=== PATIENT | female | born 1945 | race Hispanic/Latino ===

== ENCOUNTER → 2020-01-16 | Outpatient (CLI) | payer OTHER | END | disposition home or self-care (01) | LOC: OIH 09:48 | PROVIDERS: ATTEND Family Medicine | DX: J20.9 Acute bronchitis, unspecified (principal); M41.85 Other forms of scoliosis, thoracolumbar region | CPT/HCPCS: 71046 ==

== ENCOUNTER 2023-03-23 15:47 | Observation (INO) | payer MEDICARE, OTHER ==
[~2023-03-23] VITALS: Ht 157.5 cm; Wt 60.8 kg
[2023-03-23 16:26] LABS: BASOPHILS % (AUTO) 0.2 % (0.0-5.0); EOSINOPHILS % (AUTO) 0.1 % (0.0-8.0); HEMATOCRIT 34.9 % (36-48); LYMPHOCYTES % (AUTO) 1.9 % (21.0-51.0); MEAN CORPUSCULAR HEMOGLOBIN 30.1 pg (27.0-33.0); MEAN CORPUSCULAR HGB CONC 32.4 g/dL (32.0-36.0); MEAN CORPUSCULAR VOLUME 93.1 fL (79-99); MONOCYTES % (AUTO) 8.3 % (3.0-13.0); NEUTROPHILS % (AUTO) 89.2 % (40.0-77.0); PLATELET COUNT (AUTO) 417 K/uL (130-400); RED BLOOD CELL COUNT(AUTO) 3.75 MIL/uL (4.00-5.50); RED CELL DISTRIBUTION WIDTH 13.3 % (11.0-15.5); WHITE BLOOD COUNT (AUTO) 11.5 K/uL (4.8-10.8)
[2023-03-23] MEDS ORDERED: 0.9%NACL 1000ML 1,000 ML IV ONE (17:00)
[2023-03-23] MEDS ORDERED: ONDANSETRON 4MG INJ IVP ONE ×2 (17:00→21:30)
[2023-03-23 17:01] LABS: ALBUMIN 4.2 g/dL (3.5-5.0); CREATININE 1.2 mg/dL (0.5-1.5); MAGNESIUM 2.1 mg/dL (1.80-2.40); POTASSIUM 4.3 mmol/L (3.5-5.1); TOTAL PROTEIN, SERUM 7.9 g/dL (6.0-8.3)
[2023-03-23] MEDS ORDERED: IOHEXOL 350 MG/ML 100ML INFUS..BTL IV ONE (17:41)
[2023-03-23 18:53] LABS: BILIRUBIN,URINE NEGATIVE (NEGATIVE); COLOR,URINE YELLOW (YELLOW); GLUCOSE, URINE (UA) NEGATIVE (NEGATIVE); KETONES,URINE NEGATIVE (NEGATIVE); LEUKOCYTE ESTERASE ,URINE NEGATIVE Leu/uL (NEGATIVE); NITRATE,URINE NEGATIVE (NEGATIVE); OCCULT BLOOD,URINE TRACE-INTACT (NEGATIVE); PROTEIN,URINE 100 mg/dL (NEGATIVE); UROBILINOGEN,URINE 0.2 mg/dL (0.2-1.0)
[2023-03-23] MEDS ORDERED: CEFTRIAXONE 1G VIAL IVPB ONE (19:00)
[2023-03-23 19:12] LABS: APPEARANCE,URINE CLEAR (CLEAR)
[2023-03-23 19:14] LABS: BACTERIA,URINE None Seen /HPF (None Seen); RBC,URINE 0-1 /HPF (0-1); SQUAMOUS EPITHELIAL CELL,UR 0-2 /HPF (0-2); WBC,URINE 0-1 /HPF (0-1)
[2023-03-24] MEDS ORDERED: 1/2 NS 1000ML 1,000 ML IV SCH (06:00)
[2023-03-24] MEDS ORDERED: ONDANSETRON 4MG INJ IVP PRN (06:00)
[2023-03-24 06:15] VITALS: BP 156/67
[2023-03-24] MEDS ORDERED: METO-391 PO (06:51)
[2023-03-24] MEDS ORDERED: VINEGAR PO (06:51)
[2023-03-24] MEDS ORDERED: ZOLP5TAB8 PO (06:51)
[2023-03-24] MEDS ORDERED: MV-M1TAB20 PO (06:51)
[2023-03-24] MEDS ORDERED: BENA10TA77 PO (06:51)
[2023-03-24] MEDS ORDERED: OMEG-148 PO (06:51)
[2023-03-24] MEDS ORDERED: EZET10TA48 PO (06:51)
[2023-03-24] MEDS ORDERED: MULT-1203 PO (06:51)
[2023-03-24] MEDS ORDERED: LEVO5TAB13 PO (06:51)
[2023-03-24] MEDS ORDERED: VITA1CAP85 PO (06:51)
[2023-03-24] MEDS ORDERED: VENL-63 PO (06:51)
[2023-03-24 09:25] LABS: BASOPHILS % (AUTO) 0.1 % (0.0-5.0); HEMATOCRIT 31.1 % (36-48); LYMPHOCYTES % (AUTO) 7.5 % (21.0-51.0); MEAN CORPUSCULAR HEMOGLOBIN 30.2 pg (27.0-33.0); MEAN CORPUSCULAR HGB CONC 31.8 g/dL (32.0-36.0); MEAN CORPUSCULAR VOLUME 94.8 fL (79-99); MONOCYTES % (AUTO) 12.9 % (3.0-13.0); NEUTROPHILS % (AUTO) 79.2 % (40.0-77.0); PLATELET COUNT (AUTO) 323 K/uL (130-400); RED BLOOD CELL COUNT(AUTO) 3.28 MIL/uL (4.00-5.50); RED CELL DISTRIBUTION WIDTH 13.8 % (11.0-15.5); WHITE BLOOD COUNT (AUTO) 7.7 K/uL (4.8-10.8)
[2023-03-24] MEDS: PANTOPRAZOLE 40 MG/VIAL IVP SCH (09:42)
[2023-03-24 09:46] LABS: ALBUMIN 3.5 g/dL (3.5-5.0); POTASSIUM 3.8 mmol/L (3.5-5.1); TOTAL PROTEIN, SERUM 6.7 g/dL (6.0-8.3)
[2023-03-24 11:57] VITALS: BP 141/66
[2023-03-24] MEDS ORDERED: CEFTRIAXONE 1G VIAL IVPB SCH (12:30)
[2023-03-24] MEDS: ACETAMINOPHEN 325 MG TAB PO PRN ×2 (13:24→20:22)
[2023-03-24 16:00] VITALS: BP 144/71
[2023-03-24 19:00] VITALS: BP 167/78
[2023-03-24] MEDS: 1/2 NS 1000ML 1,000 ML IV SCH (20:48)
[2023-03-24] MEDS ORDERED: ZOLPIDEM TARTRATE 5 MG TAB PO SCH (21:00)
[2023-03-25] VITALS: BP 163/70
[2023-03-25 04:00] VITALS: BP 131/64
[2023-03-25] MEDS: 1/2 NS 1000ML 1,000 ML IV SCH ×2 (04:40→12:30)
[2023-03-25 08:00] VITALS: BP 157/79
[2023-03-25] MEDS ORDERED: MULTIVITAMIN TABLET PO SCH (09:00)
[2023-03-25] MEDS ORDERED: BENAZEPRIL HCL 10 MG TABLET PO SCH (09:00)
[2023-03-25] MEDS ORDERED: EZETIMIBE 10 MG TAB PO SCH (09:00)
[2023-03-25] MEDS ORDERED: VINEGAR PO SCH (09:00)
[2023-03-25] MEDS ORDERED: FISH OIL 1000 MG/CAP PO SCH (09:00)
[2023-03-25] MEDS ORDERED: Vitamin D3 Complete Cap PO SCH (09:00)
[2023-03-25] MEDS ORDERED: NON-FORMULARY MEDICATION 1 EACH (Omega-3S/Dha/Epa/Fish Oil (Fish Oil 1,000 mg Softgel) 1 E PO SCH (09:00)
[2023-03-25] MEDS ORDERED: NON-FORMULARY MEDICATION 1 EACH (Multivitamin (Multi Vitamin Daily) 1 EACH) PO SCH (09:00)
[2023-03-25] MEDS ORDERED: VITAMIN B COMPLEX 1 CAPSULE PO SCH (09:00)
[2023-03-25] MEDS ORDERED: (Levocetirizine Dihydrochloride 5 MG) PO SCH (09:00)
[2023-03-25] MEDS ORDERED: METOPROLOL SUCCINATE 50 MG TAB.SR.24H PO SCH (09:00)
[2023-03-25] MEDS: PANTOPRAZOLE 40 MG/VIAL IVP SCH (09:07)
[2023-03-25 12:00] VITALS: BP 133/56
== END 2023-03-25 15:20 | disposition home or self-care (01) ==
LOC: EDH 15:47 → EDHIP 03-24 05:22 → 3BH 03-24 06:08
PROVIDERS: ADMIT Internal Medicine; ATTEND Internal Medicine
DX: E86.0 Dehydration (principal); Z20.822 Contact with and (suspected) exposure to COVID-19; D72.829 Elevated white blood cell count, unspecified; R11.2 Nausea with vomiting, unspecified; R19.7 Diarrhea, unspecified; I10 Essential (primary) hypertension; E11.9 Type 2 diabetes mellitus without complications; I25.10 Atherosclerotic heart disease of native coronary artery without angina pectoris; J11.1 Influenza due to unidentified influenza virus with other respiratory manifestations; R74.02 Elevation of levels of lactic acid dehydrogenase [LDH]; E78.5 Hyperlipidemia, unspecified; Z90.710 Acquired absence of both cervix and uterus; Z95.1 Presence of aortocoronary bypass graft; Z79.899 Other long term (current) drug therapy; Z98.890 Other specified postprocedural states; Z95.5 Presence of coronary angioplasty implant and graft
CPT/HCPCS: 96376 ×3; 96361 ×4; 96375 ×2; 99285; 83735; 84484; 80053 ×2; 85025 ×2; 87880; 87804 ×2; 83605 ×2; 81001; 36415 ×2; 87635; 71045; 74177; 96365; 82948 ×7; 83630; C9803; J0696 ×2; J2405 ×3; Q9967; G0378 ×34; C9113 ×2

== ENCOUNTER → 2023-05-24 | Outpatient (CLI) | payer MEDICARE ==
[~2023-05-24] MED LIST: BENA10TA77 PO; EZET10TA48 PO; LEVO5TAB13 PO; METO-391 PO; MULT-1203 PO; MV-M1TAB20 PO; OMEG-148 PO; VENL-63 PO; VINEGAR PO; VITA1CAP85 PO; ZOLP5TAB8 PO
== END | disposition home or self-care (01) ==
LOC: RAH 15:40
PROVIDERS: ATTEND Family Medicine
DX: M19.042 Primary osteoarthritis, left hand (principal); R60.0 Localized edema; W54.8XXA Other contact with dog, initial encounter; Y93.89 Activity, other specified; Y92.89 Other specified places as the place of occurrence of the external cause; Y99.8 Other external cause status
CPT/HCPCS: 73130

== ENCOUNTER 2023-05-29 01:54 | Inpatient (IN) | payer MEDICARE ==
[~2023-05-29] VITALS: Ht 157.5 cm; Wt 59.1 kg
[2023-05-29 02:19] LABS: BASOPHILS # (AUTO) 0.05 K/uL (0.00-0.20); BASOPHILS % (AUTO) 0.3 % (0.0-5.0); EOSINOPHILS # (AUTO) 0.05 K/uL (0.00-0.70); EOSINOPHILS % (AUTO) 0.3 % (0.0-8.0); HEMATOCRIT 27.2 % (36-48); IMMATURE GRANULOCYTE ABSOLUTE 0.08 K/uL (0-1); LYMPHOCYTES # (AUTO) 0.7 K/uL (1.0-4.8); LYMPHOCYTES % (AUTO) 4.5 % (21.0-51.0); MEAN CORPUSCULAR HGB CONC 32.4 g/dL (32.0-36.0); MEAN CORPUSCULAR VOLUME 83.4 fL (79-99); MONOCYTES # (AUTO) 1.6 K/uL (0.1-1.0); NEUTROPHILS # (AUTO) 13.6 K/uL (1.8-7.7); NEUTROPHILS % (AUTO) 84.4 % (40.0-77.0); PLATELET COUNT (AUTO) 542 K/uL (130-400); RED BLOOD CELL COUNT(AUTO) 3.26 MIL/uL (4.00-5.50); RED CELL DISTRIBUTION WIDTH 16.9 % (11.0-15.5); WHITE BLOOD COUNT (AUTO) 16.1 K/uL (4.8-10.8)
[2023-05-29 02:28] LABS: POTASSIUM 5.6 mmol/L (3.5-5.1)
[2023-05-29] MEDS ORDERED: MORPHINE 4 MG SYG IVP ONE (02:30)
[2023-05-29 02:37] LABS: ALBUMIN 2.9 g/dL (3.5-5.0); BILIRUBIN,TOTAL 0.6 mg/dL (0.2-1.0); TOTAL PROTEIN, SERUM 6.6 g/dL (6.0-8.3)
[2023-05-29 02:49] LABS: APPEARANCE,URINE CLEAR (CLEAR); BILIRUBIN,URINE NEGATIVE (NEGATIVE); COLOR,URINE YELLOW (YELLOW); GLUCOSE, URINE (UA) NEGATIVE (NEGATIVE); KETONES,URINE NEGATIVE (NEGATIVE); LEUKOCYTE ESTERASE ,URINE NEGATIVE Leu/uL (NEGATIVE); NITRATE,URINE NEGATIVE (NEGATIVE); OCCULT BLOOD,URINE NEGATIVE (NEGATIVE); PROTEIN,URINE 50 mg/dL (NEGATIVE); UROBILINOGEN,URINE 0.2 mg/dL (0.2-1.0)
[2023-05-29 02:50] LABS: WBC MORPHOLOGY CONSISTENT W/DIFF
[2023-05-29 02:53] LABS: ADD UA MICROSCOPIC YES
[2023-05-29 02:54] LABS: BACTERIA,URINE RARE /HPF (None Seen); MUCUS,URINE RARE LPF (None Seen); RBC,URINE 0-1 /HPF (0-1); SQUAMOUS EPITHELIAL CELL,UR RARE /HPF (0-2)
[2023-05-29] MEDS ORDERED: IOHEXOL 350 MG/ML 100ML INFUS..BTL IV ONE (03:23)
[2023-05-29] MEDS ORDERED: KETOROLAC 30MG VIAL (30MG/ML) IVP ONE (04:30)
[2023-05-29] MEDS ORDERED: FAMOTIDINE 20MG VIAL IV ONE (04:30)
[2023-05-29] MEDS ORDERED: METOCLOPRAMIDE 10 MG/2 ML VIAL IVP ONE (04:30)
[2023-05-29] MEDS ORDERED: ONDANSETRON 4MG INJ ONE (05:31)
[2023-05-29] MEDS ORDERED: ONDANSETRON 4MG INJ IVP PRN (06:00)
[2023-05-29] MEDS ORDERED: DEXAMETHASONE SOD PHOSPHATE 4 MG/ML 1ML VIAL IV ONE (06:00)
[2023-05-29] MEDS ORDERED: HYDROMORPHONE 0.5 MG SYG (0.5MG/0.5ML) IVP PRN (06:00)
[2023-05-29 07:54] LABS: BASOPHILS # (AUTO) 0.04 K/uL (0.00-0.20); BASOPHILS % (AUTO) 0.2 % (0.0-5.0); HEMATOCRIT 28.1 % (36-48); IMMATURE GRANULOCYTE ABSOLUTE 0.11 K/uL (0-1); LYMPHOCYTES # (AUTO) 0.7 K/uL (1.0-4.8); LYMPHOCYTES % (AUTO) 3.8 % (21.0-51.0); MEAN CORPUSCULAR HEMOGLOBIN 26.9 pg (27.0-33.0); MEAN CORPUSCULAR VOLUME 83.9 fL (79-99); MONOCYTES # (AUTO) 1.6 K/uL (0.1-1.0); MONOCYTES % (AUTO) 9.2 % (3.0-13.0); NEUTROPHILS # (AUTO) 15.4 K/uL (1.8-7.7); NEUTROPHILS % (AUTO) 86.2 % (40.0-77.0); PLATELET COUNT (AUTO) 483 K/uL (130-400); RED BLOOD CELL COUNT(AUTO) 3.35 MIL/uL (4.00-5.50); RED CELL DISTRIBUTION WIDTH 16.6 % (11.0-15.5); WHITE BLOOD COUNT (AUTO) 17.8 K/uL (4.8-10.8)
[2023-05-29 08:14] LABS: ALBUMIN 2.8 g/dL (3.5-5.0); BILIRUBIN,TOTAL 0.5 mg/dL (0.2-1.0); CREATININE 1.2 mg/dL (0.5-1.5); TOTAL PROTEIN, SERUM 6.3 g/dL (6.0-8.3)
[2023-05-29] MEDS ORDERED: 0.9%NACL 50ML IV SCH (09:00)
[2023-05-29 09:10] VITALS: BP 122/67; PULSE 73; RESP 18
[2023-05-29 11:00] VITALS: BP 141/70; PULSE 74; RESP 18
[2023-05-29] MEDS: ZOSYN 3.375GM +NS 50ML IVPB SCH ×2 (12:10→19:17)
[2023-05-29 13:48] LABS: CRP QUANTITATIVE 155.6 mg/L (0.00-9.0)
[2023-05-29 16:00] VITALS: BP 169/74; PULSE 71; RESP 18
[2023-05-29 20:00] VITALS: O2SAT 97
[2023-05-29 20:36] VITALS: BP 155/68; PULSE 83; RESP 21
[2023-05-29] MEDS: IBUPROFEN 200 MG TAB PO SCH (21:43)
[2023-05-29 23:52] VITALS: BP 151/72; PULSE 75; RESP 20
[2023-05-30] MEDS: ZOSYN 3.375GM +NS 50ML IVPB SCH ×2 (02:13→08:52)
[2023-05-30 04:11] VITALS: BP 155/75; PULSE 70; RESP 20
[2023-05-30 07:05] VITALS: BP 139/68; PULSE 60; RESP 19
[2023-05-30] MEDS: IBUPROFEN 200 MG TAB PO SCH (08:52)
[2023-05-30 09:00] VITALS: O2SAT 96
[2023-05-30] MEDS ORDERED: COLCHICINE 0.6 MG TABLET PO SCH (09:00)
[2023-05-30] MEDS ORDERED: PANTOPRAZOLE 40 MG TAB DR PO SCH (09:00)
[2023-05-30 11:05] VITALS: BP 169/63; PULSE 85; RESP 19
== END 2023-05-30 13:00 | disposition home or self-care (01) | DRG 315 ==
LOC: EDH 01:54 → EDHIP 05:10 → 3AH 09:30
PROVIDERS: ADMIT Internal Medicine; ATTEND Internal Medicine
DX: I31.39 Other pericardial effusion (noninflammatory) (principal); J90 Pleural effusion, not elsewhere classified; R91.8 Other nonspecific abnormal finding of lung field; I25.10 Atherosclerotic heart disease of native coronary artery without angina pectoris; E11.9 Type 2 diabetes mellitus without complications; I10 Essential (primary) hypertension; E78.5 Hyperlipidemia, unspecified; Z95.5 Presence of coronary angioplasty implant and graft; Z90.710 Acquired absence of both cervix and uterus
CPT/HCPCS: 36415; 71045; 71275; 80053; 81001; 82550; 82948; 83874; 84484; 85025; 85651; 86140; 93005; 93306; 93356; G0378; J1100; J1885; J2270; J2405; J2543; J2765; J3490; Q9967

== ENCOUNTER → 2024-11-10 | Outpatient (CLI) | payer MEDICARE ==
--- NOTE | 2024-11-10 16:51 | HMCIMG ---
FEMUR 2 VW LEFT REASON: LEFT HIP PAIN, ADULT GENERAL MEDICAL EXAM TECHNIQUE: 4 views were obtained. FINDINGS: There is no evidence of fracture or dislocation. There is no joint effusion. The soft tissues appear unremarkable. There is no evidence of a radiopaque foreign body. IMPRESSION: No acute findings.
--- NOTE | 2024-11-10 16:51 | HMCIMG ---
HIP UNILAT 2-3VW LEFT REASON: LEFT HIP PAIN, ADULT GENERAL MEDICAL EXAM TECHNIQUE: 3 views were obtained. FINDINGS: There is no evidence of fracture or dislocation. There is no joint effusion. The soft tissues appear unremarkable. There is no evidence of a radiopaque foreign body. IMPRESSION: No acute findings.
== END | disposition home or self-care (01) ==
LOC: RAH 15:43
PROVIDERS: ATTEND Internal Medicine
DX: M25.552 Pain in left hip (principal)
CPT/HCPCS: 73502; 73552

== ENCOUNTER → 2025-03-26 | Outpatient (CLI) | payer MEDICARE ==
--- NOTE | 2025-03-26 16:37 | HMCIMG ---
Exam Type: LUMBAR W FLEXION/EXTENSION Clinical Information: Pain in left leg, Low back pain Comparison: None Findings: Exam of the lumbosacral spine demonstrates no evidence of fracture or subluxation. There are moderate spondylitic changes. The facet joints show moderate degenerative changes. Grade 1 anterolisthesis of L5 over S1 caused by degeneration of the facet joints. Lateral flexion extension views demonstrate dynamic widening of the listhesis, 8 versus 6 mm The disc spaces are intact. Bone mineralization is normal. Impression: Spondylitic changes and degenerative changes of the apophyseal joints as noted.
== END | disposition home or self-care (01) ==
LOC: RAH 15:51
PROVIDERS: ATTEND Internal Medicine
DX: M47.816 Spondylosis without myelopathy or radiculopathy, lumbar region (principal); M43.17 Spondylolisthesis, lumbosacral region; M51.372 Other intervertebral disc degeneration, lumbosacral region with discogenic back pain and lower extremity pain; M79.605 Pain in left leg; M54.50 Low back pain, unspecified
CPT/HCPCS: 72114